=== PATIENT | female | born 2000 | race American Indian/Alaskan Native ===

== ENCOUNTER 2024-10-22 11:15 | Emergency (ER) | payer MEDICAID, OTHER ==
[~2024-10-22] VITALS: Ht 157.5 cm; Wt 93.3 kg
[2024-10-22 11:57] LABS: Basophils # (auto) 0 10 ^3/uL (0-0.2); Basophils % (auto) 0.5 % (0.0-2.0); Eosinophils # (auto) 0.1 10 ^3/uL (0-0.8); Hematocrit 35.3 % (36.0-46.0); Hemoglobin 11.8 g/dL (12.2-16.2); Lymphocytes # (auto) 1.3 10 ^3/uL (0.4-5.4); Lymphocytes % (auto) 18.6 % (10.0-50.0); Mean Corpuscular Hemoglobin 27.4 pg (28.0-32.0); Mean Corpuscular Hgb Conc. 33.5 g/dL (32.0-36.0); Mean Corpuscular Volume 81.7 fL (80.0-100.0); Monocytes # (auto) 0.4 10 ^3/uL (0-1.3); Monocytes % (auto) 4.8 % (0.0-12.0); Neutrophils # (auto) 5.4 10 ^3/uL (1.6-8.6); Neutrophils % (auto) 75.1 % (37.0-80.0); Platelet Count (auto) 314 10^3/uL (140-450); Red Blood Cells 4.32 10^6/uL (4.0-5.20); Red Cell Distribution Width 14.5 % (11.8-14.3); White Blood Cell 7.2 10^3/uL (4.4-10.8)
[2024-10-22 12:11] LABS: Alanine Aminotransferase 14 U/L (7-40); Alkaline Phosphatase 71 U/L (46-116); Anion Gap 8 (5-15); BUN/Creatinine Ratio 7.1 (10.0-20.0); Calcium 10.1 mg/dL (8.7-10.4); Carbon Dioxide 24 mmol/L (20-31); Chloride 107 mmol/L (98-107); Lipase 32 U/L (12-53); Potassium 3.9 mmol/L (3.5-5.1); Sodium 139 mmol/L (136-145)
[2024-10-22 12:12] LABS: Albumin 4.8 g/dL (3.2-4.8); Bilirubin, Total 0.7 mg/dL (0.2-1.0); Total Protein 7.9 g/dL (5.7-8.2)
[2024-10-22 12:13] LABS: Aspartate Aminotransferase 12 U/L (13-40); Blood Urea Nitrogen 6 mg/dL (9-23); Glucose 115 mg/dL (74-106)
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
[2024-10-22 12:37] LABS: Urine Bacteria FEW /hpf (None Seen); Urine Blood Negative /uL (Negative); Urine Budding Yeast FEW /hpf (None Seen); Urine Clarity Turbid (Clear); Urine Color Colorless (Yellow); Urine Mucus FEW (None Seen); Urine Protein, UAD 1+ (Negative); Urine Specific Gravity 1.022 (1.001-1.035); Urine Urobilinogen Normal (Negative); Urine WBC 7 /hpf (0 - 5); Urine pH 8.5 (5.0-9.0)
[2024-10-22] MEDS: SODIUM CHLORIDE 0.9% 2,000 ML IV ONE (12:46)
[2024-10-22] MEDS: FAMOTIDINE (10MG/ML) 2ML VL IV ONE (12:50)
[2024-10-22] MEDS: ONDANSETRON HCL 4 MG/2 ML VIAL IV ONE (12:51)
[2024-10-22 13:29] LABS: Rapid Influenza A Negative (Negative); Rapid Influenza B Negative (Negative)
[2024-10-22 14:00] LABS: Amphetamine Screen, Urine Neg (NEGATIVE); Barbiturate Scree,Urine Neg (NEGATIVE); Benzodiazephine Screen, Urine Neg (NEGATIVE); Cocaine Screen, Urine Pos (NEGATIVE); Opiate Scree,Urine Neg (NEGATIVE)
[2024-10-22 14:01] LABS: Cannabinoid Screen, Urine Pos (NEGATIVE); Phencyclidine Screen, Urine Neg (NEGATIVE)
[2024-10-22] MEDS ORDERED: FAMO20TA10 PO (14:02)
[2024-10-22] MEDS ORDERED: ZOFR4T PO (14:02)
[2024-10-22] MEDS ORDERED: LOPE7.5C PO (14:02)
[2024-10-22 14:55] VITALS: BP 136/89; PULSE 66; RESP 16; TEMP 98.1; O2SAT 100
== END 2024-10-22 14:56 | disposition home or self-care (01) ==
LOC: ER 11:15
DX: R11.2 Nausea with vomiting, unspecified (principal); R10.2 Pelvic and perineal pain; T40.5X5A Adverse effect of cocaine, initial encounter; R19.7 Diarrhea, unspecified; R51.9 Headache, unspecified; F17.200 Nicotine dependence, unspecified, uncomplicated; Z98.890 Other specified postprocedural states; Z79.899 Other long term (current) drug therapy; Y92.89 Other specified places as the place of occurrence of the external cause
CPT/HCPCS: 36415; 80053; 80307; 81001; 83690; 84702; 85025; 87804; 96361; 96374; 96375; 99284; J2405; J3490; J7030

== ENCOUNTER 2024-11-26 18:19 | Emergency (ER) | payer MEDICAID, OTHER ==
[~2024-11-26] VITALS: Ht 160 cm; Wt 95.0 kg
[~2024-11-26 18:19] MED LIST: FAMO20TA10 PO; LOPE7.5C PO; ZOFR4T PO
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
[2024-11-26] MEDS: HYDROcodone-ACET 10/325MG TAB PO ONE (19:34)
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
[2024-11-26] MEDS ORDERED: HYDR-4798 PO (21:12)
[2024-11-26] MEDS ORDERED: IBUP-1455 PO (21:12)
[2024-11-26 21:42] VITALS: BP 142/72; PULSE 78; RESP 20; TEMP 99.9; O2SAT 100
[2024-11-26] MEDS: KETOROLAC TROMETH 30 MG/ML 1ML VIAL IM ONE (21:47)
== END 2024-11-26 22:01 | disposition home or self-care (01) ==
LOC: ER 18:19
DX: S00.83XA Contusion of other part of head, initial encounter (principal); S70.01XA Contusion of right hip, initial encounter; S93.492A Sprain of other ligament of left ankle, initial encounter; E66.9 Obesity, unspecified; Z98.890 Other specified postprocedural states; Z79.899 Other long term (current) drug therapy; V89.2XXA Person injured in unspecified motor-vehicle accident, traffic, initial encounter; Y93.I9 Activity, other involving external motion; Y92.488 Other paved roadways as the place of occurrence of the external cause; Y99.8 Other external cause status
CPT/HCPCS: 70450; 73502; 73552; 73610; 96372; 99285; J1885